=== PATIENT | male | born 1965 | race Caucasian/White ===

== ENCOUNTER 2022-07-30 07:36 | Outpatient (CLI) | payer BC, SELFPAY ==
--- NOTE | 2022-07-30 09:09 | W.ANESCHARGE ---
Anesthesia Charges Start Date/Time Anesthesia Start Date: 07/30/22 Anesthesia Start Time: 08:30 Stop Date/Time Anesthesia Stop Date: 07/30/22 Anesthesia Stop Time: 09:00 Summary Emergency: No
--- NOTE | 2022-07-30 09:54 | W.ANESCHARGE ---
Anesthesia Charges Start Date/Time Anesthesia Start Date: 07/30/22 Anesthesia Start Time: 08:30 Stop Date/Time Anesthesia Stop Date: 07/30/22 Anesthesia Stop Time: 09:00 Summary Emergency: No
== END 2022-07-30 07:37 | disposition home or self-care (01) ==
PROVIDERS: PCP Family Medicine; Visit Provider Internal Medicine
DX: Z12.11 Encounter for screening for malignant neoplasm of colon (principal); K63.5 Polyp of colon; K57.30 Diverticulosis of large intestine without perforation or abscess without bleeding
CPT/HCPCS: 00811; 45380; 88305; J2704

== ENCOUNTER 2023-05-30 10:55 | Outpatient (CLI) | payer BC, SELFPAY | END 2023-05-30 10:56 | disposition home or self-care (01) | LOC: NFLDREF 14:43 | PROVIDERS: PCP Family Medicine; Referring Provider Family Medicine; Visit Provider Family Medicine | DX: E78.5 Hyperlipidemia, unspecified (principal); Z12.5 Encounter for screening for malignant neoplasm of prostate | CPT/HCPCS: 80053; 80061; 84153 ==

== ENCOUNTER 2024-07-16 08:24 | Outpatient (CLI) | payer BC, SELFPAY | END 2024-07-16 08:25 | disposition home or self-care (01) | LOC: NFLDREF 14:58 | PROVIDERS: PCP Family Medicine; Referring Provider Family Medicine; Visit Provider Family Medicine | DX: E78.5 Hyperlipidemia, unspecified (principal); I10 Essential (primary) hypertension; Z12.5 Encounter for screening for malignant neoplasm of prostate | CPT/HCPCS: 80053; 80061; G0103 ==

== ENCOUNTER 2025-07-31 09:45 | Outpatient (CLI) | payer BC, SELFPAY | END 2025-07-31 09:46 | disposition home or self-care (01) | LOC: NFLDREF 08-01 16:06 | PROVIDERS: PCP Family Medicine; Referring Provider Family Medicine; Visit Provider Family Medicine | DX: E78.5 Hyperlipidemia, unspecified (principal); Z12.5 Encounter for screening for malignant neoplasm of prostate | CPT/HCPCS: 80053; 80061; G0103 ==